=== PATIENT | female | born 1995 | race Two or more races ===

== ENCOUNTER 2024-08-06 14:33 | Emergency (ER) | payer OTHER ==
[~2024-08-06] VITALS: Ht 162.6 cm; Wt 90.7 kg
[2024-08-06] MEDS: ONDANSETRON HCL/PF 4 MG/2 ML VIAL IVP ONE (15:30)
[2024-08-06] MEDS: MORPHINE SULFATE INJ 2 MG/ML DISP.SYRIN IV ONE (15:32)
[2024-08-06] MEDS: IV NS 0.9% 1,000 ML BAG IV ONE (15:35)
[2024-08-06] MEDS ORDERED: ONDANSETRON HCL/PF 4 MG/2 ML VIAL ONE (16:02)
[2024-08-06] MEDS ORDERED: MORPHINE SULFATE INJ 4 MG/ML DISP.SYRIN ONE (16:02)
[2024-08-06 16:08] LABS: BASOPHILS % (AUTO) 0.2 % (0.0-2.0); EOSINOPHILS # (AUTO) 0.1 K/uL (0.0-0.7); EOSINOPHILS % (AUTO) 0.8 % (0.0-6.0); HEMATOCRIT 35 % (33-45); HEMOGLOBIN 11.3 g/dL (11.5-14.8); LYMPHOCYTES # (AUTO) 2.5 K/uL (0.8-4.8); LYMPHOCYTES % (AUTO) 21.8 % (20.0-44.0); MEAN CORPUSCULAR HEMOGLOBIN 26 PG (26.0-33.0); MEAN CORPUSCULAR HGB CONC 33 g/dl (31.0-36.0); MEAN CORPUSCULAR VOLUME 79 fL (82-100); MONOCYTES # (AUTO) 0.6 K/uL (0.1-1.30); MONOCYTES % (AUTO) 4.9 % (2.0-12.0); NEUTROPHILS # (AUTO) 8.5 K/uL (1.8-8.9); NEUTROPHILS % (AUTO) 72.3 % (43.0-81.0); PLATELET COUNT (AUTO) 324 K/uL (150-450); RED BLOOD CELL COUNT(AUTO) 4.39 MIL/uL (4.0-5.2); RED CELL DISTRIBUTION WIDTH 15.3 % (11.5-15.0); WHITE BLOOD COUNT (AUTO) 11.7 K/uL (4.3-11.0)
[2024-08-06 16:18] LABS: CALCIUM, SERUM 8.5 mg/dL (8.5-10.1); CREATININE 0.6 mg/dL (0.6-1.3); POTASSIUM 3.7 mmol/L (3.5-5.1)
[2024-08-06 16:20] LABS: APPEARANCE,URINE CLEAR (CLEAR); BILIRUBIN,URINE NEGATIVE (NEGATIVE); BLOOD, URINE NEGATIVE Ery/uL (NEGATIVE); COLOR,URINE YELLOW (YELLOW); KETONES,URINE TRACE mg/dL (NEGATIVE); LEUKOCYTE ESTERASE ,URINE NEGATIVE (NEGATIVE); NITRITE, URINE NEGATIVE (NEGATIVE); PROTEIN,URINE NEGATIVE (NEGATIVE); UGLUCOSE NEGATIVE (NEGATIVE); UROBILINOGEN,URINE 0.2 EU/dL (0.2)
[2024-08-06 16:24] LABS: PREGNANCY TEST URINE QUAL NEGATIVE (NEGATIVE)
[2024-08-06 16:29] LABS: ADD URINE CULTURE NO; BACTERIA,URINE RARE /HPF (None Seen); MUCUS,URINE Moderate /LPF (None Seen); RBC,URINE 0-2 /HPF (0-2); WBC,URINE 0-2 /HPF (0-3)
[2024-08-06 16:32] LABS: ALBUMIN 3.7 g/dL (3.4-5.0); BILIRUBIN,TOTAL 0.2 mg/dL (0.2-1.0)
[2024-08-06] MEDS ORDERED: IOHEXOL-300 100 ML VIAL IV ONE (16:39)
[2024-08-06] MEDS ORDERED: IV NS 0.9% 250 ML IV ONE (16:39)
[2024-08-06] MEDS ORDERED: CT SWABBABLE VALVE TRANS SET 1 EA INFUS.SET MC ONE (16:43)
[2024-08-06] MEDS ORDERED: IBUP-1953 PO (19:01)
[2024-08-06] MEDS ORDERED: ACET-2030 PO (19:01)
[2024-08-06 19:10] VITALS: BP 126/78; TEMP 98.4; O2SAT 100
== END 2024-08-06 19:05 | disposition home or self-care (01) ==
LOC: ER 14:33
DX: K80.50 Calculus of bile duct without cholangitis or cholecystitis without obstruction (principal); Z90.49 Acquired absence of other specified parts of digestive tract
CPT/HCPCS: 99285; 74177; 96374; 96361; 96375; 85025; 80048; 83690; 80076; 84703; 81001; 36415; J2270; J2405; J7030; J7050; A4223; Q9967